=== PATIENT | male | born 1945 | race Caucasian/White ===

== ENCOUNTER 2021-12-31 06:02 | Day surgery (SDC) | payer MEDICARE, OTHER ==
[~2021-12-31] VITALS: Ht 180.3 cm; Wt 94.1 kg
--- NOTE | 2021-12-31 06:50 | NUR ---
Dr. Means notified per phone that no orders were received from the [facility] re: admission orders and specifics for consent to be signed. States that he will be here to give us that information prior to surgery.
[2021-12-31 07:02] VITALS: BP 157/65; PULSE 84; TEMP 97.9
[2021-12-31] MEDS ORDERED: COZAAR 50MG50 MG/TAB PO (07:51)
[2021-12-31] MEDS ORDERED: LINZESS145CAP PO (07:52)
[2021-12-31] MEDS ORDERED: VITAMIN B12 781 TAB PO (07:53)
[2021-12-31] MEDS ORDERED: VITAMIN D31000 I1 PO (07:53)
[2021-12-31] MEDS ORDERED: ZETIA 10MG TAB10 MG PO (07:54)
[2021-12-31] MEDS ORDERED: PROAIR HFA0.09 MG/AC IH (07:55)
[2021-12-31] MEDS ORDERED: PRILOSEC 20MG20 MG PO (07:56)
--- NOTE | 2021-12-31 07:58 | NUR ---
Dr. Means here and gets consent signed himself and writes in what needs to be done.
[2021-12-31] MEDS ORDERED: FLONASE NASAL S16 GM NS (08:03)
[2021-12-31] MEDS ORDERED: ASPIRIN 81M81 MG/TA2 PO (08:04)
[2021-12-31] MEDS ORDERED: NAPROSYN500 MG PO (08:04)
[2021-12-31] MEDS ORDERED: NORVASC 5MG5 MG/TAB PO (08:05)
[2021-12-31] MEDS ORDERED: WELLBUTRIN 75MG75 MG PO (08:05)
[2021-12-31 08:52] VITALS: BP 117/60; PULSE 68
--- NOTE | 2021-12-31 08:52 | NUR ---
Patient returns to room 7 per cart from surgery accompanied by Sinan CRUZ and Smith RN. IV fluids infusing. Awake and alert. Temp 97.0. Foot of cart elevated and left foot dressing clean and dry. Post op shoe in place. Given juice to drink. Denies pain at present time. Siderails up x2 and call light in reach.
--- NOTE | 2021-12-31 09:00 | NUR ---
Office was notified and asked to fax surgical order.
[2021-12-31 09:07] VITALS: BP 123/71; PULSE 66
--- NOTE | 2021-12-31 09:07 | NUR ---
Resting and denies pain or nausea. IV fluids infusing.
[2021-12-31 09:22] VITALS: BP 140/80; PULSE 64
--- NOTE | 2021-12-31 09:22 | NUR ---
Sips on juice and keeps the left foot elevated. Continues to deny pain or nausea.
[2021-12-31 09:37] VITALS: BP 137/81; PULSE 71
--- NOTE | 2021-12-31 09:37 | NUR ---
Eating muffin and drinking juice. Left foot dressing clean and dry. Post op shoe in place.
--- NOTE | 2021-12-31 09:50 | NUR ---
IV to INT and assisted up to the bathroom. Does well with ambulation.
--- NOTE | 2021-12-31 10:15 | NUR ---
INT discontinued and site is free of redness. Patient dresses self. Tolerates activity well.
--- NOTE | 2021-12-31 10:40 | NUR ---
Dismissal instructions given and voices understanding of these. Provided handout with home care instructions from Dr. Willson and copy placed in chart. Instructed on use of Motrin and Tylenol for pain. Stressed importance of elelvating the left foot and using ice for comfort.
--- NOTE | 2021-12-31 10:55 | NUR ---
Patient dismissed to home driven by friend and taken to the front door per wheelchair and assisted into car with instructions in hand. Left post op shoe maintained.
== END 2021-12-31 10:55 | disposition home or self-care (01) ==
LOC: SDCO 06:02
DX: T84.84XA Pain due to internal orthopedic prosthetic devices, implants and grafts, initial encounter (principal); M20.42 Other hammer toe(s) (acquired), left foot; M21.272 Flexion deformity, left ankle and toes; I10 Essential (primary) hypertension; J44.9 Chronic obstructive pulmonary disease, unspecified; E66.9 Obesity, unspecified; K21.9 Gastro-esophageal reflux disease without esophagitis; G47.33 Obstructive sleep apnea (adult) (pediatric); F32.A Depression, unspecified; I25.10 Atherosclerotic heart disease of native coronary artery without angina pectoris; E78.5 Hyperlipidemia, unspecified; N40.0 Benign prostatic hyperplasia without lower urinary tract symptoms; Z87.891 Personal history of nicotine dependence; Z68.29 Body mass index [BMI] 29.0-29.9, adult; Z95.5 Presence of coronary angioplasty implant and graft; Y79.8 Miscellaneous orthopedic devices associated with adverse incidents, not elsewhere classified; Z79.899 Other long term (current) drug therapy
CPT/HCPCS: J0690; J2704; J3010; J7120